=== PATIENT | male | born 1935 | race Caucasian/White ===

== ENCOUNTER → 2018-11-30 | Outpatient (CLI) | payer MEDICARE, OTHER ==
[~2018-11-30] VITALS: Ht 172 cm; Wt 81.2 kg
[~2018-11-30] MED LIST: ASPI-808 PO; CARB100T48 PO; CRAN500T2 PO; DICL100G31 TP; DOCU100C37 PO; FERR325T18 PO; GABA-488 PO; HYDR-3820 PO; L.AC1CAP6 PO; LOVA40TA2 PO; MAGN420T PO; METF750T2 PO; NITR0.4T42 SL; NYST15CR TP; OMEP40CA36 PO; POLY17PO6 PO; RANO500T3 PO; TAMS0.4C98 PO
[2018-11-30 10:31] VITALS: BP 110/66
== END | disposition home or self-care (01) ==
LOC: PREOP 09:59
PROVIDERS: ATTEND Radiology Radiation Oncology
DX: Z01.818 Encounter for other preprocedural examination (principal)
CPT/HCPCS: 87081

== ENCOUNTER 2018-12-07 10:22 | Day surgery (SDC) | payer MEDICARE, OTHER ==
[~2018-12-07] VITALS: Ht 172 cm; Wt 81.2 kg
[2018-12-07] VITALS (10 sets, daily range): BP systolic 103–155; BP diastolic 60–84
[2018-12-07] MEDS ORDERED: LACTATED RINGERS 1,000 ML IV PRN (11:24)
[2018-12-07] MEDS ORDERED: LEVOFLOXACIN 500 MG/100 ML IV 100 ML IV ONE (11:30)
--- NOTE | 2018-12-07 11:34 | Progress Note-Pre Operative ---
Pre-Operative Progress Note H&P Reviewed The H&P was reviewed, patient examined and no changes noted. Date Seen by Provider: Dec 07, 2018 Time Seen by Provider: 11:33 Date H&P Reviewed: Dec 07, 2018 Time H&P Reviewed: 11:33 Pre-Operative Diagnosis: Prostate cancer cT2c, PSA 54.7, [place] 9 (4+5) DINO ALEXIS MD Dec 07, 2018 11:34
--- NOTE | 2018-12-07 11:40 | Discharge Inst-Simple/Standard ---
Discharge Inst-Standard Discharge Medications New, Converted or Re-Newed RX: Other (Continue antibiotics per radiation oncology orders) Patient Instructions/Follow Up Plan of Care/Instructions/FU: 1) Treatment planning scan at [facility] in cancer center 12/20/18 at 10:00 a.m. -- arrive at 9:30 a.m. to drink oral contrast. Activity as Tolerated: Yes Discharge Diet: No Restrictions DINO ALEXIS MD Dec 07, 2018 11:40
[2018-12-07] MEDS ORDERED: fentaNYL INJECTION 100 MCG/2 ML AMP ONE (13:35)
[2018-12-07] MEDS ORDERED: ONDANSETRON 4 MG/2 ML (SDV) Z0FRAN ONE (13:37)
[2018-12-07] MEDS ORDERED: proPOfol 200 MG/20 ML (DIPRIVAN) VIAL IV ONE (13:37)
[2018-12-07] MEDS ORDERED: LIDOCAINE PF 2% 5 ML (XYLOCAINE) VIAL ONE (13:37)
[2018-12-07] MEDS ORDERED: ONDANSETRON 4 MG/2 ML (SDV) Z0FRAN IVP PRN (14:45)
[2018-12-07] MEDS ORDERED: fentaNYL INJECTION 100 MCG/2 ML AMP IVP ONE (14:45)
[2018-12-07] MEDS ORDERED: SEVOFLURANE (ULTANE) 15 ML INHAL SOLN ONE (14:48)
--- NOTE | 2018-12-07 15:49 | Progress Note-Post Operative ---
Post-Operative Progess Note Surgeon (s)/Manager Of Environmental Services (s) Surgeon Ester GALO MD Manager Of Environmental Services: DINO ALEXIS MD Pre-Operative Diagnosis Prostate cancer cT2c, PSA 54.7, [place] 9 (4+5) Post-Operative Diagnosis Same as pre-op Procedure & Operative Findings Date of Procedure 12/07/18 Procedure Performed/Findings (1) Placement of fiducial gold seed markers (2) Injection of biodegradable hydrogel prostate-rectal spacer utilizing the SpaceO[employer] system Anesthesia Type General Estimated Blood Loss Estimated blood loss (mL): Minimal Specimens/Packing Specimens Removed None Packing: None DINO ALEXIS MD Dec 07, 2018 15:49
== END 2018-12-07 16:50 | disposition home or self-care (01) ==
LOC: SDC 10:22
PROVIDERS: ATTEND Radiology Radiation Oncology
DX: C61 Malignant neoplasm of prostate (principal); E78.5 Hyperlipidemia, unspecified; E11.9 Type 2 diabetes mellitus without complications; K21.9 Gastro-esophageal reflux disease without esophagitis; I25.110 Atherosclerotic heart disease of native coronary artery with unstable angina pectoris; F17.290 Nicotine dependence, other tobacco product, uncomplicated; Z88.2 Allergy status to sulfonamides; Z95.1 Presence of aortocoronary bypass graft; Z79.4 Long term (current) use of insulin; Z79.82 Long term (current) use of aspirin; Z79.899 Other long term (current) drug therapy; Z80.42 Family history of malignant neoplasm of prostate; Z82.49 Family history of ischemic heart disease and other diseases of the circulatory system; Z82.3 Family history of stroke
CPT/HCPCS: 82962

== ENCOUNTER → 2019-01-09 | Outpatient (RCR) | payer MEDICARE, OTHER | END | disposition home or self-care (01) | LOC: ONC 10-03 13:22 | PROVIDERS: ATTEND Radiology Radiation Oncology | DX: Z51.0 Encounter for antineoplastic radiation therapy (principal); C61 Malignant neoplasm of prostate | CPT/HCPCS: 77300; 77301; 77334; 77336; 77338; 77385; 99204 ==

== ENCOUNTER 2019-03-09 12:45 | Outpatient (RCR) | payer MEDICARE, OTHER ==
[~2019-03-09 12:45] MED LIST changes: -METF750T2 PO; +METF750T45 PO; +OMEP40CA27 PO; -OMEP40CA36 PO; -TAMS0.4C98 PO; +TMSL.4C PO
== END 2019-04-10 | disposition home or self-care (01) ==
LOC: ONC 12:45
PROVIDERS: ATTEND Radiology Radiation Oncology
DX: Z51.0 Encounter for antineoplastic radiation therapy (principal); C61 Malignant neoplasm of prostate
CPT/HCPCS: 77300; 77336; 77338; 77385; 77417

== ENCOUNTER → 2019-07-19 | Outpatient (CLI) | payer MEDICARE, OTHER ==
[~2019-07-19] MED LIST changes: +ACHYD1T PO; -HYDR-3820 PO
== END ==
LOC: EDSTATUS 10:35 → ONC 11:00
PROVIDERS: ATTEND Radiology Radiation Oncology
DX: C61 Malignant neoplasm of prostate (principal)
CPT/HCPCS: 84153; 99212